=== PATIENT | male | born 1945 | race Caucasian/White ===

== ENCOUNTER 2017-06-18 17:41 | Emergency (ER) | payer BC ==
[2017-06-18] MEDS ORDERED: Sodium Chloride 0.9% 1000 ML 2,000 ML ONE (17:58)
[2017-06-18] MEDS: Sodium Chloride 0.9% 1000 ML 1,000 ML IV SCH ×2 (18:03→18:04)
[2017-06-18 18:14] LABS: Mean Cell Volume 94.5 fl (78-100); Mean Corpuscular Hemoglobin 31.3 pg (26-32); Mean Platelet Volume 11.9 fl (6-9.5); Platelet Count 129 K/mm3 (150-450); Red Blood Count 5.24 M/mm3 (4.1-5.6); Red Cell Distribution Width 13.4 % (11.5-14.0); White Blood Count 7.5 K/mm3 (4.0-10.5)
--- NOTE | 2017-06-18 18:14 | ERPHSYRPT ---
- History of Present Illness Source: patient Exam Limitations: no limitations Patient Subjective Stated Complaint: patient told ems that he fell outside earlier this am. patient denies any injury or pain. after falling patient developed weakness in his legs. has also had fever and cough for two days. ems states family had told them patient did not want to come to the hospital Triage Nursing Assessment: to room per ems cot. skin hot to touch, flushed. resp nonlabored, dry occasional cough. denies any pain. denies any injury Timing/Duration: today (10 AM) Severity: moderate Modifying Factors: Improves With: other (fell at home this morning felt to be confused by family). Worsens With: eating, immobilization, medication, movement , rest, acetaminophen, ibuprofen, nothing Associated Symptoms: cough, weakness, other (cough and fever for 2 days weakness in his legs), No nausea, No vomiting, No abdominal pain, No shortness of breath, No heartburn, No diaphoresis, No chills Hx Tetanus, Diphtheria Vaccination/Date Given: No Hx Influenza Vaccination/Date Given: No Hx Pneumococcal Vaccination/Date Given: No Immunizations Up to Date: No <TANNER GONZALEZ - Last Filed: 06/18/17 19:04> <QUINCY GRANADOS - Last Filed: 06/18/17 19:20> - History of Present Illness Time Seen by Provider: 06/18/17 17:54 Physician History: This is a 71-year-old white male with history of heart disease, diabetes, hypokalemia, high blood pressure, myocardial infarction. Patient is brought by medics patient apparently had a fallen at home and was felt to be confused by his family. On arrival by the medics patient was noted to have a temperature of 103 in his ear he was noted have a heart rate of 101. Patient is brought into the emergency room he does not appear to be in acute distress he does have a temperature of 102.7 he has good peripheral perfusion. He is alert oriented to himself blood pressure 123/78. Sat is 94%. 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 (TANNER GONZALEZ) Allergies/Adverse Reactions: No Known Drug Allergies Allergy (Unverified 06/18/17 17:54) Home Medications: Aspirin [Peabody Aspirin] 162 mg PO DAILY 06/18/17 [History] Carbidopa/Levodopa [Carbidopa-Levo 25-100 Tab] 1 each PO BID 06/18/17 [History] Fenofibrate 54 mg PO DAILY 06/18/17 [History] Fluticasone Propionate [Flovent Diskus] 50 mcg IH DAILY 06/18/17 [History] Folic Acid/Vit B Complex and C [Super B-Complex Folic-Vit C Tb] 400 mcg PO DAILY 06/18/17 [History] Furosemide 40 mg [Lasix 40 MG] 40 mg PO DAILY 06/18/17 [History] Gabapentin [Neurontin] 100 mg PO BID 06/18/17 [History] Insulin Glargine,Hum.rec.anlog [Basaglar Kwikpen U-100] 100 unit SQ DAILY [History] Loratadine 10 mg [Claritin 10 mg] 10 mg PO DAILY 06/18/17 [History] Metoprolol Tartrate 25 mg [Lopressor 25MG Tab] 25 mg PO BID 06/18/17 [ History] Omeprazole 20 MG [Prilosec 20 mg] 20 mg PO DAILY 06/18/17 [History] Potassium Chloride 10 Meq Tab* [Klor Con 10 MEQ] 10 meq PO DAILY 06/18/17 [ History] Quinapril HCl 10 mg [Accupril 10MG Tablet] 10 mg PO DAILY 06/18/17 [History] Simvastatin 20Mg [Zocor 20Mg] 20 mg PO DAILY 06/18/17 [History] - Review of Systems Constitutional: Fever, Weakness, No Chills, No Fatigue, No Lethargy, No Malaise , No Night Sweats, No Weight Loss Eyes: No Symptoms, No Discharge, No Eye Pain, No Eye Redness, No Itchy, No Photophobia, No Tearing, No Vision Changes, No Double Vision, No Foreign Body Sensation Ears, Nose, & Throat: No Symptoms, No Ear Pain, No Ear Discharge, No Hearing Changes, No Tinnitus, No Nose Pain, No Nose Congestion, No Nose Discharge, No Sinus Drainage, No Epistaxis, No Mouth Pain, No Mouth Swelling, No Loose Teeth, No Throat Pain, No Throat Swelling, No Hoarse, No Painful Swallowing, No Snoring , No Stridor Respiratory: Cough, No Cyanosis, No Dyspnea, No Dyspnea on Exertion (PATEL), No Stridor, No Wheezing Cardiac: No Chest Pain, No Edema, No Palpitations, No Syncope, No Orthopnea, No PND Abdominal/Gastrointestinal: No Abdominal Pain, No Nausea, No Vomiting, No Diarrhea, No Constipation, No Hematemesis, No Hematochezia, No Melena, No Dysphagia, No Appetite Changes Genitourinary Symptoms: No Dysuria Musculoskeletal: Other (weakness in his legs), No Back Pain, No Neck Pain Skin: No Rash Neurological: No Dizziness, No Focal Weakness, No Sensory Changes Psychological: No Symptoms Endocrine: No Symptoms All Other Systems: Reviewed and Negative <TANNER GONZALEZ - Last Filed: 06/18/17 19:04> - Past Medical History Pertinent Past Medical History: Yes Cardiac History: Coronary Artery Disease, Hypertension Endocrine Medical History: Diabetes Type II GI Medical History: Gallbladder Disease Other Medical History: heart aneurysm, aorta repair, 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 - Past Surgical History Past Surgical History: Yes Cardiac: CABG Gastrointestinal: Cholecystectomy Other Surgical History: aorta repair, aneurysm repair - Social History Smoking Status: Former smoker Exposure to second hand smoke: No Drug Use: none Patient Lives Alone: No <TANNER GONZALEZ - Last Filed: 06/18/17 19:04> - Physical Exam General Appearance: no apparent distress, other (obese obese white male oriented x 3) Eye Exam: PERRL/EOMI, eyes nml inspection, other (Fundi are unremarkable) Ears, Nose, Throat Exam: normal ENT inspection, TMs normal, pharynx normal, moist mucous membranes Neck Exam: normal inspection, non-tender, supple, full range of motion Respiratory Exam: normal breath sounds, lungs clear, No respiratory distress Cardiovascular Exam: regular rate/rhythm, normal heart sounds, normal peripheral pulses, tachycardia Gastrointestinal/Abdomen Exam: soft, normal bowel sounds, No tenderness, No mass Back Exam: normal inspection, normal range of motion, No CVA tenderness, No vertebral tenderness Extremity Exam: normal inspection, normal range of motion, pelvis stable Neurologic Exam: alert, oriented x 3, cooperative, industrial chemist II-XII nml as tested, normal mood/affect, nml cerebellar function, nml station & gait, sensation nml, No motor deficits Skin Exam: normal color, warm, dry, No rash Lymphatic Exam: No adenopathy SpO2 Interpretation: normal (94%) SpO2: 94 Oxygen Delivery: Room Air <TANNER GONZALEZ - Last Filed: 06/18/17 19:04> - Nursing Vital Signs Nursing Vital Signs: Initial Vital Signs Temperature 102.7 F 06/18/17 17:43 Pulse Rate 107 H 06/18/17 17:43 Respiratory Rate 20 06/18/17 17:43 Blood Pressure 128/78 06/18/17 17:43 O2 Sat by Pulse Oximetry 94 L 06/18/17 17:43 Pain Scale Pain Intensity 0 - Course Nursing assessment & vital signs reviewed: Yes EKG Interpreted by Me: RATE (108 bpm), Left Gibson Deviation, Other (EKG: Sinus tachycardia 10 8 bpm, left axis deviation and complete left bundle branch block) - Radiology Exams Chest X-ray Interpretation: Interpreted by me (no acute disease process) <TANNER GONZALEZ - Last Filed: 06/18/17 19:04> Ordered Tests: Active Orders 24 hr Category Date Time Status Principal Gifts Officer STAT Care 06/18/17 17:52 Active Clean Catch Urine Specimen STAT Care 06/18/17 17:51 Active EKG-ER Only STAT Care 06/18/17 17:52 Active IV Insertion STAT Care 06/18/17 17:51 Active IV Insertion-2nd Peripheral STAT Care 06/18/17 18:02 Active Pulse Oximetry (ED) STAT Care 06/18/17 17:52 Active CHEST 1 VIEW (PORTABLE) Stat Exams 06/18/17 17:51 Taken HEAD WITHOUT CONTRAST [CT] Stat Exams 06/18/17 18:20 Taken BLOOD CULTURE Stat Lab 06/18/17 18:40 Received CBC W DIFF Stat Lab 06/18/17 18:00 Completed CMP Stat Lab 06/18/17 18:00 Completed CULTURE, THROAT Stat Lab 06/18/17 18:10 Received CULTURE,SPUTUM Stat Lab 06/18/17 18:21 Uncollected CULTURE,URINE Stat Lab 06/18/17 18:30 Received Lactic Acid Stat Lab 06/18/17 17:58 Results Manual Differential NC Stat Lab 06/18/17 18:00 Completed NT PRO BNP Stat Lab 06/18/17 18:00 Completed PROTIME WITH INR Stat Lab 06/18/17 18:00 Completed PTT Stat Lab 06/18/17 18:00 Completed STREP SCREEN-BETA A Stat Lab 06/18/17 18:10 Completed TROPONIN Q3H Lab 06/18/17 18:00 Completed TROPONIN Q3H Lab 06/18/17 21:00 Ordered TROPONIN Q3H Lab 06/19/17 00:00 Ordered TROPONIN Q3H Lab 06/19/17 03:00 Ordered TROPONIN Q3H Lab 06/19/17 06:00 Ordered UA Stat Lab 06/18/17 18:30 Received Medication Summary Generic Name Dose Route Start Last Admin Trade Name Freq PRN Reason Stop Dose Admin Sodium Chloride 1,000 mls @ 999 mls/hr 06/18/17 18:00 06/18/17 18:04 Sodium Chloride 0.9% 1000 Ml IV 06/18/17 21:00 999 mls/hr .Q1H1M KATHIA Administration Discontinued Medications Generic Name Dose Route Start Last Admin Trade Name Freq PRN Reason Stop Dose Admin Acetaminophen 1,000 mg 06/18/17 18:17 06/18/17 18:19 Tylenol Extra Strength 500 Mg PO 06/18/17 18:18 1,000 mg STAT ONE Administration Acetaminophen Confirm 06/18/17 18:18 Tylenol Extra Strength 500 Mg Administered 06/18/17 18:19 Dose 1,000 mg .ROUTE .STK-MED ONE Ceftriaxone Sodium/Dextrose 1 g in 50 mls @ 100 mls/hr 06/18/17 18:28 18:42 Rocephin 1 Gm-D5w 50 Ml Bag IV 06/18/17 18:57 100 mls/hr STAT STA Administration Ceftriaxone Sodium/Dextrose Confirm 06/18/17 18:40 Rocephin 1 Gm-D5w 50 Ml Bag Administered 06/18/17 18:41 Dose 1 g in 50 mls @ ud IV .STK-MED ONE Lab/Rad Data: Laboratory Result Diagrams 06/18/17 18:00 06/18/17 18:00 Laboratory Results 06/18/17 06/18/17 06/18/17 Range/Units 18:10 18:10 18:00 WBC (4.0-10.5) K/mm3 RBC (4.1-5.6) M/mm3 Hgb (12.5-18.0) gm/dl Hct (42-50) % MCV (78-100) fl MCH (26-32) pg MCHC (32-36) g/dl RDW (11.5-14.0) % Plt Count (150-450) K/mm3 MPV (6-9.5) fl INR (0.8-3.0) APTT (24.1-36.1) SECONDS Sodium (136-145) mEq/L Potassium (3.5-5.1) mEq/L Chloride (98-107) mEq/L Carbon Dioxide (21-32) mEq/L Anion Gap (5-15) MEQ/L BUN (9-20) mg/dL Creatinine (0.55-1.30) mg/dl Estimated GFR ML/MIN Glucose (70-110) MG/DL Lactic Acid (0.4-2.0) Calcium (8.5-10.1) mg/dL Total Bilirubin (0.2-1.0) mg/dL AST (15-37) U/L ALT (12-78) U/L Alkaline Phosphatase (46-116) U/L Troponin I 0.204 H* (0.000-0.056) ng/ml NT-Pro-B Natriuret Pep (0-125) pg/ml Serum Total Protein (6.4-8.2) gm/dL Albumin (3.4-5.0) g/dL Influenza Type A Ag POSITIVE (NEGATIVE) Influenza Type B Ag NEGATIVE (NEGATIVE) RSV (PCR) NEGATIVE (Negative) Streptococcus Screen NEGATIVE (Negative) 06/18/17 06/18/17 06/18/17 Range/Units 18:00 18:00 18:00 WBC 7.5 (4.0-10.5) K/mm3 RBC 5.24 (4.1-5.6) M/mm3 Hgb 16.4 (12.5-18.0) gm/dl Hct 49.5 (42-50) % MCV 94.5 (78-100) fl MCH 31.3 (26-32) pg MCHC 33.1 (32-36) g/dl RDW 13.4 (11.5-14.0) % Plt Count 129 L (150-450) K/mm3 MPV 11.9 H (6-9.5) fl INR 1.12 (0.8-3.0) APTT 33.5 (24.1-36.1) SECONDS Sodium 135 L (136-145) mEq/L Potassium 4.3 (3.5-5.1) mEq/L Chloride 97 L (98-107) mEq/L Carbon Dioxide 27.8 (21-32) mEq/L Anion Gap 14.4 (5-15) MEQ/L BUN 21 H (9-20) mg/dL Creatinine 2.93 H (0.55-1.30) mg/dl Estimated GFR 23 ML/MIN Glucose 117 H (70-110) MG/DL Lactic Acid (0.4-2.0) Calcium 9.2 (8.5-10.1) mg/dL Total Bilirubin 0.90 (0.2-1.0) mg/dL AST 103 H (15-37) U/L ALT 62 (12-78) U/L Alkaline Phosphatase 63 (46-116) U/L Troponin I (0.000-0.056) ng/ml NT-Pro-B Natriuret Pep 2032 H (0-125) pg/ml Serum Total Protein 7.9 (6.4-8.2) gm/dL Albumin 4.1 (3.4-5.0) g/dL Influenza Type A Ag (NEGATIVE) Influenza Type B Ag (NEGATIVE) RSV (PCR) (Negative) Streptococcus Screen (Negative) 06/18/17 Range/Units 17:58 WBC (4.0-10.5) K/mm3 RBC (4.1-5.6) M/mm3 Hgb (12.5-18.0) gm/dl Hct (42-50) % MCV (78-100) fl MCH (26-32) pg MCHC (32-36) g/dl RDW (11.5-14.0) % Plt Count (150-450) K/mm3 MPV (6-9.5) fl INR (0.8-3.0) APTT (24.1-36.1) SECONDS Sodium (136-145) mEq/L Potassium (3.5-5.1) mEq/L Chloride (98-107) mEq/L Carbon Dioxide (21-32) mEq/L Anion Gap (5-15) MEQ/L BUN (9-20) mg/dL Creatinine (0.55-1.30) mg/dl Estimated GFR ML/MIN Glucose (70-110) MG/DL Lactic Acid 2.0 (0.4-2.0) Calcium (8.5-10.1) mg/dL Total Bilirubin (0.2-1.0) mg/dL AST (15-37) U/L ALT (12-78) U/L Alkaline Phosphatase (46-116) U/L Troponin I (0.000-0.056) ng/ml NT-Pro-B Natriuret Pep (0-125) pg/ml Serum Total Protein (6.4-8.2) gm/dL Albumin (3.4-5.0) g/dL Influenza Type A Ag (NEGATIVE) Influenza Type B Ag (NEGATIVE) RSV (PCR) (Negative) Streptococcus Screen (Negative) - Progress Progress: improved <TANNER GONZALEZ - Last Filed: 06/18/17 19:04> - Progress Progress: improved Will see patient in: hospital (full admit), other ([facility]) Counseled pt/family regarding: lab results, diagnosis, need for follow-up, rad results <QUINCY GRANADOS - Last Filed: 06/18/17 19:20> - Progress Progress Note: 06/18/17 18:16 71-year-old white male with history of atherosclerotic coronary artery disease , that she can take him patient noted to have a of temperature of 103, He was noted to fall at home this morning felt weak and confused by his family. Sepsis screen has been ordered. Patient's lactate is 2.0. IV normal saline has been ordered Patient's pulse ox is 94% patient with pulses equal and symmetrical 2 over 4 upper and lower. He has good capillary refill to his extremities. Patient's blood pressure is 128/78 patient's temperature 102 rectally patient will be given TYLENOL 06/18/17 18:18 06/18/17 18:19 06/18/17 19:02 patient has recieved rocephin 1 gram iv , patient's troponin is elevated head ct is pending patient has lbbb case discussed with Dr Granados, he will assume care of this patient secondary to shift change. (TANNER GONZALEZ) <TANNER GONZALEZ - Last Filed: 06/18/17 19:04> - Departure Time of Disposition: 19:20 Departure Disposition: [facility] under Dr Jonn Granados / Dr Charly haile (cardiology)) Critical Care Time: Yes Critical Care Time(excluding separately billable procedures): 30-74 minutes <QUINYC GRANADOS - Last Filed: 06/18/17 19:20> - Departure Clinical Impression: Non-ST elevation VT (NSTEMI), Influenza A Condition: Stable Referrals: GUI SIMON [Primary Care Provider] -
[2017-06-18] MEDS ORDERED: TYLENOL EXTRA STRENGTH 500 MG PO ONE (18:17)
[2017-06-18] MEDS ORDERED: TYLENOL EXTRA STRENGTH 500 MG ONE (18:18)
[2017-06-18 18:28] LABS: INR 1.12 (0.8-3.0); PROTIME 12.5 SECONDS (8.83-12.87)
[2017-06-18] MEDS ORDERED: ROCEPHIN 1 Gm-D5w 50 ml Bag** 1 G/50 ML IVPB IV STA (18:28)
[2017-06-18 18:29] LABS: PTT 33.5 SECONDS (24.1-36.1)
[2017-06-18] MEDS ORDERED: ROCEPHIN 1 Gm-D5w 50 ml Bag** 1 G/50 ML IVPB IV ONE (18:40)
[2017-06-18 18:44] LABS: ALBUMIN 4.1 g/dL (3.4-5.0); ANION GAP 14.4 MEQ/L (5-15); BILIRUBIN,TOTAL 0.9 mg/dL (0.2-1.0); Carbon Dioxide 27.8 mEq/L (21-32); Potassium 4.3 mEq/L (3.5-5.1); Total Protein 7.9 gm/dL (6.4-8.2)
[2017-06-18 19:22] VITALS: O2SAT 95
[2017-06-18 19:24] LABS: Collection Type CLEAN CATCH
[2017-06-18 19:27] LABS: Bilirubin NEGATIVE (NEGATIVE); Blood 250 Ery/ul (0-5); COMPLETE URINE MICROSCOPIC? YES; Glucose NEGATIVE (NEGATIVE); Leukocyte Esterase NEGATIVE (NEGATIVE)
[2017-06-18 19:30] LABS: Bacteria RARE /HPF (NEGATIVE); WBC 0-2 /HPF (0-5)
[2017-06-18 19:59] VITALS: BP 90/56; PULSE 98
--- NOTE | 2017-06-18 21:00 | XRAY ---
Indication: Found semi-unresponsive. Comparison: October 18, 2009. Portable chest underinflated today without focal infiltrate, consolidation, large effusion, or pneumothorax. Heart is not enlarged for AP portable technique and again demonstrates previous CABG surgery. Bony thorax intact. Impression: Nonacute underinflated chest.
--- NOTE | 2017-06-18 21:05 | XRAY ---
Indication: Found semi-unresponsive. Fever, fatigue, weakness, and confusion. Multiple contiguous axial images obtained through the head without contrast. Comparison: None Age-appropriate global atrophy and mild periventricular degenerative micro-ischemia bilaterally. No acute intracranial hemorrhage, abnormal extra-axial fluid collection, or mass effect. Fourth ventricle is midline without hydrocephalus. Bony calvarium intact. Tiny fluid in the inferior left mastoid air cells. Remaining visualized paranasal sinuses and and right mastoid air cells are clear. Impression: Nonacute senile brain. Tiny fluid in the left mastoid air cells presumed inflammatory. Comment: Preliminary interpretation was made by [facility]. No discrepancy. CTDI 67.41
[2017-06-18 21:24] LABS: Platelet Estimate NORMAL (NORMAL); Total Cells Counted 100
== END 2017-06-18 20:17 | disposition short-term general hospital (02) ==
LOC: ED 17:41
DX: I21.4 Non-ST elevation (NSTEMI) myocardial infarction (principal); J11.1 Influenza due to unidentified influenza virus with other respiratory manifestations; W19.XXXA Unspecified fall, initial encounter; R41.0 Disorientation, unspecified; R50.9 Fever, unspecified; E11.9 Type 2 diabetes mellitus without complications; I10 Essential (primary) hypertension; I25.2 Old myocardial infarction; Z79.899 Other long term (current) drug therapy; Z79.4 Long term (current) use of insulin
CPT/HCPCS: 36000; 36415; 70450; 71010; 80053; 81000; 83605; 83880; 84484; 85025; 85610; 85730; 87040; 87070; 87086; 87430; 87631; 93005; 93041; 96360; 96361; 99285; J0696; A9270-GY

== ENCOUNTER 2018-06-23 19:38 | Emergency (ER) | payer BC ==
[2018-06-23] MEDS ORDERED: solu-MEDROL 125 MG IV ONE (20:14)
[2018-06-23] MEDS ORDERED: Sodium Chloride 0.9% 1000 ML 1,000 ML IV STA (20:14)
--- NOTE | 2018-06-23 20:14 | ERPHSYRPT ---
- History of Present Illness Time Seen by Provider: 06/23/18 19:55 Source: patient, family Exam Limitations: no limitations Patient Subjective Stated Complaint: pt reports cough beginning before opal , states he began wheezing recently and feels short of air with exertion. pt reports thick white sputum. states he felt feverish at home as well. pt also is afraid he might be dehydrated. Triage Nursing Assessment: pt is aox3, pupils perrl, pt afebrile, resps easy and non labored, expiratory wheezes heard anterior and posterior bilat, intermittent productive cough heard on exam, radial pulses strong and equal, pt skin pink warm dry. Physician History: 72 y/o white male with cardiac hx and diabetes presents with approx 6 days of coughing and feeling worse. denies cp, denies abd pain, denies n/v/d. pt feeling weak today. Timing/Duration: day(s) (6) Cough Quality/Degree: mild, dry cough Possible Cause: occasional episodes Modifying Factors: Improves With: coughing Associated Symptoms: cough, sore throat, No chest pain/soreness, No nasal congestion, No nasal drainage, No shortness of breath, No sinus infection Allergies/Adverse Reactions: cephalexin [From Keflex] Allergy (Verified 06/23/18 20:04) tramadol [From Ultram] Allergy (Verified 06/23/18 20:04) Home Medications: Aspirin [Levy Aspirin] 162 mg PO DAILY 06/18/17 [History] Carbidopa/Levodopa [Carbidopa-Levo 25-100 Tab] 1 each PO BID 06/18/17 [History] Fenofibrate 54 mg PO DAILY 06/18/17 [History] Fluticasone Propionate [Flovent Diskus] 50 mcg IH DAILY 06/18/17 [History] Folic Acid/Vit B Complex and C [Super B-Complex Folic-Vit C Tb] 400 mcg PO DAILY 06/18/17 [History] Furosemide 40 mg [Lasix 40 MG] 40 mg PO DAILY 06/18/17 [History] Gabapentin [Neurontin] 100 mg PO BID 06/18/17 [History] Insulin Glargine,Hum.rec.anlog [Basaglar Kwikpen U-100] 100 unit SQ DAILY [History] Loratadine 10 mg [Claritin 10 mg] 10 mg PO DAILY 06/18/17 [History] Metoprolol Tartrate 25 mg [Lopressor 25MG Tab] 25 mg PO BID 06/18/17 [ History] Omeprazole 20 MG [Prilosec 20 mg] 20 mg PO DAILY 06/18/17 [History] Potassium Chloride 10 Meq Tab* [Klor Con 10 MEQ] 10 meq PO DAILY 06/18/17 [ History] Quinapril HCl 10 mg [Accupril 10MG Tablet] 10 mg PO DAILY 06/18/17 [History] Simvastatin 20Mg [Zocor 20Mg] 20 mg PO DAILY 06/18/17 [History] Hx Tetanus, Diphtheria Vaccination/Date Given: No Hx Influenza Vaccination/Date Given: Yes Hx Pneumococcal Vaccination/Date Given: No Immunizations Up to Date: Yes - Review of Systems Constitutional: Weakness Eyes: No Symptoms Ears, Nose, & Throat: No Symptoms Respiratory: Cough, Dyspnea on Exertion (PATEL) (mild), No Stridor, No Wheezing Abdominal/Gastrointestinal: No Symptoms, No Abdominal Pain, No Nausea, No Vomiting, No Diarrhea Genitourinary Symptoms: No Symptoms, No Dysuria, No Frequency, No Hematuria Musculoskeletal: No Symptoms Skin: No Symptoms Neurological: No Symptoms Psychological: No Symptoms Endocrine: No Symptoms Hematologic/Lymphatic: No Symptoms Immunological/Allergic: No Symptoms All Other Systems: Reviewed and Negative - Past Medical History Pertinent Past Medical History: Yes Neurological History: No Pertinent History ENT History: No Pertinent History Cardiac History: Coronary Artery Disease, Hypertension Respiratory History: No Pertinent History Endocrine Medical History: Diabetes Type II Musculoskeletal History: No Pertinent History GI Medical History: Gallbladder Disease History: No Pertinent History Psycho-Social History: No Pertinent History Male Reproductive Disorders: No Pertinent History Other Medical History: heart aneurysm, aorta repair, 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 - Past Surgical History Past Surgical History: Yes Neuro Surgical History: No Pertinent History Cardiac: CABG Respiratory: No Pertinent History Gastrointestinal: Cholecystectomy Genitourinary: No Pertinent History Musculoskeletal: No Pertinent History Male Surgical History: No Pertinent History Other Surgical History: aorta repair, aneurysm repair - Social History Smoking Status: Former smoker Exposure to second hand smoke: No Drug Use: none Patient Lives Alone: No - Nursing Vital Signs Nursing Vital Signs: Initial Vital Signs Temperature 98.5 F 06/23/18 19:45 Pulse Rate 105 H 06/23/18 19:45 Respiratory Rate 22 06/23/18 19:45 Blood Pressure 125/83 06/23/18 19:45 O2 Sat by Pulse Oximetry 93 L 06/23/18 19:45 Pain Scale Pain Intensity 0 - Physical Exam General Appearance: mild distress, alert, anxiety Eye Exam: PERRL/EOMI Ears, Nose, Throat Exam: normal ENT inspection, TMs normal, moist mucous membranes Neck Exam: normal inspection, non-tender, supple, full range of motion Respiratory Exam: airway intact, wheezing, No chest tenderness, No respiratory distress, No accessory muscle use, No rhonchi, No stridor Cardiovascular Exam: tachycardia Gastrointestinal/Abdomen Exam: soft, normal bowel sounds, No tenderness, No guarding, No rebound Rectal Exam: not done Back Exam: normal inspection, normal range of motion, No CVA tenderness, No vertebral tenderness Extremity Exam: normal inspection, normal range of motion, pelvis stable Neurologic Exam: alert, oriented x 3, cooperative, private branch exchange operator II-XII nml as tested Skin Exam: normal color, warm, dry Lymphatic Exam: No adenopathy SpO2 Interpretation: normal SpO2: 93 Oxygen Delivery: Room Air - Course Nursing assessment & vital signs reviewed: Yes Ordered Tests: Active Orders 24 hr Category Date Time Status Chief Communications Officer STAT Care 06/23/18 20:15 Active IV Insertion STAT Care 06/23/18 20:14 Active CHEST 1 VIEW (PORTABLE) Stat Exams 06/23/18 20:14 Taken CBC W DIFF Stat Lab 06/23/18 20:46 Completed CMP Stat Lab 06/23/18 20:46 Completed Lactic Acid Stat Lab 06/23/18 20:30 Completed NT PRO BNP Stat Lab 06/23/18 20:46 Completed Peak Expiratory Flow Rate ONCE RT 06/23/18 20:20 Active Respiratory Therapy Assessment DAILY RT 06/23/18 20:20 Active Medication Summary Discontinued Medications Generic Name Dose Route Start Last Admin Trade Name Freq PRN Reason Stop Dose Admin Hydrocodone Bitart/Acetaminophen 15 ml 06/23/18 20:17 06/23/18 20:33 Hydrocodone-Acetamin 2.5-108/5 Ml Solution PO 06/23/18 20:18 15 ml STAT STA Administration Hydrocodone Bitart/Acetaminophen Confirm 06/23/18 20:20 Hydrocodone-Acetamin 2.5-108/5 Ml Solution Administered 06/23/18 20:21 Dose 5 ml .ROUTE .STK-MED ONE Hydrocodone Bitart/Acetaminophen Confirm 06/23/18 20:20 Hydrocodone-Acetamin 2.5-108/5 Ml Solution Administered 06/23/18 20:21 Dose 10 ml .ROUTE .STK-MED ONE Albuterol/Ipratropium 3 ml 06/23/18 20:16 06/23/18 20:18 Duoneb 0.5-3 Mg/3 Ml Neb IH 06/23/18 20:17 3 ml STAT ONE Administration Albuterol/Ipratropium Confirm 06/23/18 20:16 Duoneb 0.5-3 Mg/3 Ml Neb Administered 06/23/18 20:17 Dose 3 ml IH .STK-MED ONE Sodium Chloride 1,000 mls @ 999 mls/hr 06/23/18 20:14 06/23/18 20:48 Sodium Chloride 0.9% 1000 Ml IV 06/23/18 21:14 999 mls/hr .Q1H1M STA Administration Sodium Chloride Confirm 06/23/18 20:43 Sodium Chloride 0.9% 1000 Ml Administered 06/23/18 20:44 Dose 1,000 mls @ ud .ROUTE .STK-MED ONE Methylprednisolone Sodium Succinate 125 mg 06/23/18 20:14 06/23/18 20:52 Solu-Medrol 125 Mg IV 06/23/18 20:15 125 mg STAT ONE Administration Methylprednisolone Sodium Succinate Confirm 06/23/18 20:42 Solu-Medrol 125 Mg Administered 06/23/18 20:43 Dose 125 mg .ROUTE .STK-MED ONE Lab/Rad Data: Laboratory Result Diagrams 06/23/18 20:46 06/23/18 20:46 Laboratory Results 06/23/18 06/23/18 06/23/18 Range/Units 20:47 20:46 20:46 WBC 9.8 (4.0-10.5) K/mm3 RBC 5.32 (4.1-5.6) M/mm3 Hgb 16.7 (12.5-18.0) gm/dl Hct 49.4 (42-50) % MCV 92.9 (78-100) fl MCH 31.4 (26-32) pg MCHC 33.8 (32-36) g/dl RDW 13.3 (11.5-14.0) % Plt Count 148 L (150-450) K/mm3 MPV 12.1 H (6-9.5) fl Gran % 64.9 (36.0-66.0) % Eos # (Auto) 0.03 (0-0.5) Absolute Lymphs (auto) 2.18 (1.0-4.6) Absolute Monos (auto) 1.21 (0.0-1.3) Lymphocytes % 22.3 L (24.0-44.0) % Monocytes % 12.4 H (0.0-12.0) % Eosinophils % 0.3 (0.00-5.0) % Basophils % 0.1 (0.0-0.4) % Absolute Granulocytes 6.36 (1.4-6.9) Basophils # 0.01 (0-0.4) Sodium 136 L (137-145) mmol/L Potassium 4.2 (3.5-5.1) mmol/L Chloride 99 (98-107) mmol/L Carbon Dioxide 26 (22-30) mmol/L Anion Gap 15.4 H (5-15) MEQ/L BUN 22 H (9-20) mg/dL Creatinine 2.09 H (0.66-1.25) mg/dL Estimated GFR 33.4 ML/MIN Glucose 189 H (74-106) mg/dL Lactic Acid (0.4-2.0) Calcium 9.2 (8.4-10.2) mg/dL Total Bilirubin 1.60 H (0.2-1.3) mg/dL AST 45 (17-59) U/L ALT 30 (0-50) U/L Alkaline Phosphatase 53 (38-126) U/L NT-Pro-B Natriuret Pep 848 (0-900) pg/mL Serum Total Protein 8.0 (6.3-8.2) g/dL Albumin 4.4 (3.5-5.0) g/dL Influenza Type A Ag NEGATIVE (NEGATIVE) Influenza Type B Ag NEGATIVE (NEGATIVE) RSV (PCR) NEGATIVE (Negative) Group A Strep Antibody NEGATIVE (NEGATIVE) 06/23/18 Range/Units 20:30 WBC (4.0-10.5) K/mm3 RBC (4.1-5.6) M/mm3 Hgb (12.5-18.0) gm/dl Hct (42-50) % MCV (78-100) fl MCH (26-32) pg MCHC (32-36) g/dl RDW (11.5-14.0) % Plt Count (150-450) K/mm3 MPV (6-9.5) fl Gran % (36.0-66.0) % Eos # (Auto) (0-0.5) Absolute Lymphs (auto) (1.0-4.6) Absolute Monos (auto) (0.0-1.3) Lymphocytes % (24.0-44.0) % Monocytes % (0.0-12.0) % Eosinophils % (0.00-5.0) % Basophils % (0.0-0.4) % Absolute Granulocytes (1.4-6.9) Basophils # (0-0.4) Sodium (137-145) mmol/L Potassium (3.5-5.1) mmol/L Chloride (98-107) mmol/L Carbon Dioxide (22-30) mmol/L Anion Gap (5-15) MEQ/L BUN (9-20) mg/dL Creatinine (0.66-1.25) mg/dL Estimated GFR ML/MIN Glucose (74-106) mg/dL Lactic Acid 1.8 (0.4-2.0) Calcium (8.4-10.2) mg/dL Total Bilirubin (0.2-1.3) mg/dL AST (17-59) U/L ALT (0-50) U/L Alkaline Phosphatase (38-126) U/L NT-Pro-B Natriuret Pep (0-900) pg/mL Serum Total Protein (6.3-8.2) g/dL Albumin (3.5-5.0) g/dL Influenza Type A Ag (NEGATIVE) Influenza Type B Ag (NEGATIVE) RSV (PCR) (Negative) Group A Strep Antibody (NEGATIVE) - Progress Progress: improved, re-examined Air Movement: good Progress Note: 06/23/18 21:30 pt states he is feeling better. Blood Culture(s) Obtained: No Antibiotics given: Yes Counseled pt/family regarding: lab results, diagnosis, need for follow-up, rad results - Departure Time of Disposition: 21:30 Departure Disposition: Home Clinical Impression: Bronchitis Condition: Stable Critical Care Time: No Referrals: GUI SIMON [Primary Care Provider] - Additional Instructions: drink plenty of fluids. take medications as prescribed. monitor your blood glucose closely. follow up with primary doctor for further management Prescriptions: Albuterol 8 gm Mdi Hfa [Ventolin Hfa MDI] 8 gm IH Q4H #1 hfa.aer.ad Azithromycin 250 mg [Zithromax 250 MG TABLET] 250 mg PO ZPACK #4 tablet Hydrocodone Bit/Acetaminophen [Hydrocodone-Acetaminophen Soln] 10 ml PO Q6H # 120 ml Prednisone 10 mg [Deltasone 10 mg] 10 mg PO BID #6 tablet
[2018-06-23] MEDS ORDERED: DUONEB 0.5-3 MG/3 ml Neb IH ONE ×2 (20:16)
[2018-06-23] MEDS ORDERED: HYDROCODONE-ACETAMIN 2.5-108/5 ML SOLUTION PO STA (20:17)
[2018-06-23] MEDS ORDERED: HYDROCODONE-ACETAMIN 2.5-108/5 ML SOLUTION ONE ×2 (20:20)
[2018-06-23] MEDS ORDERED: solu-MEDROL 125 MG ONE (20:42)
[2018-06-23] MEDS ORDERED: Sodium Chloride 0.9% 1000 ML 1,000 ML ONE (20:43)
[2018-06-23 20:49] LABS: BASOPHIL % 0.1 % (0.0-0.4); Basophil (Absolute #) 0.01 (0-0.4); Eosinophil % 0.3 % (0.00-5.0); Eosinophil (Absolute #) 0.03 (0-0.5); Granulocyte Absolute (ANC) 6.36 (1.4-6.9); Granulocytes % 64.9 % (36.0-66.0); Hematocrit 49.4 % (42-50); Hemoglobin 16.7 gm/dl (12.5-18.0); Lymphocyte (Absolute #) 2.18 (1.0-4.6); Lymphocytes % 22.3 % (24.0-44.0); Mean Cell Volume 92.9 fl (78-100); Mean Corpuscular Hemoglobin 31.4 pg (26-32); Mean Corpuscular Hgb Concent. 33.8 g/dl (32-36); Mean Platelet Volume 12.1 fl (6-9.5); Monocyte (Absolute #) 1.21 (0.0-1.3); Monocytes % 12.4 % (0.0-12.0); Platelet Count 148 K/mm3 (150-450); Red Blood Count 5.32 M/mm3 (4.1-5.6); Red Cell Distribution Width 13.3 % (11.5-14.0); White Blood Count 9.8 K/mm3 (4.0-10.5)
[2018-06-23 21:08] LABS: ALBUMIN 4.4 g/dL (3.5-5.0); ANION GAP 15.4 MEQ/L (5-15); BILIRUBIN,TOTAL 1.6 mg/dL (0.2-1.3); Calcium 9.2 mg/dL (8.4-10.2); Creatinine 1 2.09 mg/dL (0.66-1.25); Potassium 4.2 mmol/L (3.5-5.1)
[2018-06-23 21:24] LABS: INFLUENZA A NEGATIVE (NEGATIVE); INFLUENZA B NEGATIVE (NEGATIVE); RESPIRATORY SYNCTIAL VIRUS NEGATIVE (Negative)
[2018-06-23] MEDS ORDERED: Zithromax 250 MG TABLET PO ONE (21:29)
[2018-06-23] MEDS ORDERED: Zithromax 250 MG TABLET ONE (21:46)
--- NOTE | 2018-06-23 22:08 | XRAY ---
Indication: Cough. Flu symptoms. Comparison: June 18, 2017. Portable chest remains clear. Heart is not enlarged for AP portable technique and again demonstrates CABG surgery. Bony thorax intact. No new/acute findings. Impression: Stable nonacute chest.
[2018-06-23 22:31] VITALS: BP 133/78; PULSE 94; O2SAT 95
== END 2018-06-23 22:31 | disposition home or self-care (01) ==
LOC: ED 19:38
DX: J40 Bronchitis, not specified as acute or chronic (principal); Z79.899 Other long term (current) drug therapy; E11.9 Type 2 diabetes mellitus without complications; Z79.4 Long term (current) use of insulin
CPT/HCPCS: 36000; 36415; 71045; 80053; 83605; 83880; 85025; 87631; 87651; 93041; 94150; 94640; 96360; 96374; 99284; J2930; A9270-GY

== ENCOUNTER 2019-05-27 11:23 | Day surgery (SDC) | payer BC ==
--- NOTE | 2019-05-24 09:38 | HP ---
PROCEDURE DATE: 05/27/19 HISTORY OF PRESENT ILLNESS: The patient is a 73 y/o who had a procedure per Dr. Lang on his left ear in the past with some problems. Ran dermatology. Question of whether he had an infected ruptured cyst site. Asked for consideration for surgical evaluation. He was given the option as it improved a little bit to give it more time, if failed to improve, continue to proceed with open surgical intervention, possible packing. He decided to set up elective excision. PAST MEDICAL HISTORY: Diabetes, hypercholesterolemia, restless leg, history of some peripheral neuropathy, coronary artery disease, hypertension, some chronic renal disease. PAST SURGICAL HISTORY: Had cholecystectomy in the past as well as surgical procedure on his ear. Also, a scalp lesion excised in the past. Has had a right knee surgery. Had a coronary artery bypass graft in the past. CURRENT MEDICATIONS: Aspirin, baciglar, carbidopa levodopa, Fenofibrate, fluconazole spray, furosemide, gabapentin, metoprolol, omeprazole, potassium chloride, quinapril, simvastatin, sulfamethoxazole, Ventolin HFA, vitamin b complex. ALLERGIES: KETEK, ULTRAM. FAMILY HISTORY: Negative with regards to this problem. REVIEW OF SYSTEMS: 14 systems reviewed, pertinent for as noted above. PHYSICAL EXAMINATION: GENERAL: No acute distress. HEENT: Sclerae nonicteric. Behind his left ear area/postauricular area ruptured cyst site. NECK: No JVD. CHEST: Equal excursion. Nonlabored breathing. CVS: Regular rate and rhythm. ABDOMEN: Soft. EXTREMITIES: No cyanosis. NEURO: Alert, moving extremities grossly symmetrically. IMPRESSION: 1. RUPTURED CYST SITE LEFT POSTAURICULAR AREA. Feel the patient will benefit from opening, possible excision, possible packing pending operative findings. He understands if packed would require packing in a daily basis. General risks of aches, pains, burning or numbness; risk if failure to heal possibly requiring other intervention; general risk of anesthesia, deep vein thrombosis, pulmonary embolism, or pneumonia, but not limited to. He understands and agrees to the planned procedure. Will proceed with outpatient excisional biopsy ruptured cyst site postauricular area, possible packing pending operative finding.
[~2019-05-27 11:23] MED LIST: Lactated Ringers 1,000 ML IV ONE; Sensorcaine 0.25% 10 ML ONE
[2019-05-27] MEDS ORDERED: Lactated Ringers 1,000 ML IV SCH (12:00)
[2019-05-27] MEDS ORDERED: Lactated Ringers 1,000 ML IV ONE (12:06)
[2019-05-27] MEDS ORDERED: Versed 2 MG/2 ML Injection ONE (13:42)
[2019-05-27] MEDS ORDERED: SUBLIMAZE 100 MCG/2 ML ONE (13:42)
[2019-05-27] MEDS ORDERED: CLINDAMYCIN-D5W 900 MG/50 ML IV ONE (13:45)
[2019-05-27] MEDS ORDERED: DIPRIVAN 200 MG/20 ML IV ONE (14:04)
[2019-05-27 15:18] VITALS: BP 115/65; PULSE 75; O2SAT 96
--- NOTE | 2019-05-27 15:27 | OP ---
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 PROCEDURE: Excisional biopsy ruptured cyst abscess cavity with culture, irrigation and packing (approximately 3 cm diameter rupture cyst abscess cavity). SURGEON: Dr. Ancelmo Knapp. LOGISTICS PLANNING ENGINEER: Migel Gabriel, Medical Student III. ANESTHESIA: General. ESTIMATED BLOOD LOSS: Minimal. INDICATIONS: As noted above. Risks and benefits explained in detail and not limited to. He had recurrent rupture cyst site post-auricular area excised previously in the office. Had persistent drainage, aches and pain. It was felt he needed OR evaluation, excision and likely packing given the degree of infection to see it there is any retained cyst particles or other material. Consent had been obtained. Site had been marked in the preoperative holding area. DESCRIPTION OF PROCEDURE AND FINDINGS: The patient is taken to the operating room. General anesthesia introduced. Post-auricular area and ear were prepped and draped in usual sterile fashion. After official time out and no disagreement with planned procedure, spindle shaped going through the nonhealing part of the wound. Dissection carried down to the ruptured cyst cavity this is carefully excised with what appeared to be some cyst particle debris deep in the cavity and passed off out to normal appearing more inflammatory granulation-type tissue. This area measured about 3 cm in size. Pinpoint cautery as there was some oozing at the skin level accomplished. Copious amount of irrigation irrigating clear. There did not appear to be any evidence of any other residual cyst material at this point. Given the degree of infection culture had been taken. Whether this residual abscess or not at this time given the degree of infection and inflammation, it was felt not safe to just simply close this, felt it should be packed as I explained to the patient previously. The corners were brought together with interrupted vertical mattress 4-0 Prolene. Adequate hemostasis noted. The wound is then packed with Iodoform packing down to the base of the wound. Sterile dressing applied. 0.25% Marcaine had been injected along the area. The patient tolerated the procedure well. Findings discussed with the family out in the waiting area including the importance of starting tomorrow to remove the packing and repack the base of the wound with normal saline wet to dry on daily and PRN basis. I will see him back in the office either next week in [facility] or the following week here at [facility].
== END 2019-05-27 15:37 | disposition home or self-care (01) ==
LOC: SDC 11:23
PROVIDERS: ATTEND Surgery
DX: C44.229 Squamous cell carcinoma of skin of left ear and external auricular canal (principal); Q18.1 Preauricular sinus and cyst; E11.9 Type 2 diabetes mellitus without complications; E78.00 Pure hypercholesterolemia, unspecified; I10 Essential (primary) hypertension; I25.10 Atherosclerotic heart disease of native coronary artery without angina pectoris
CPT/HCPCS: 82962; 87070; 88305; 99100; J2250; J2704; J3010

== ENCOUNTER 2019-12-16 09:36 | Day surgery (SDC) | payer BC ==
[~2019-12-16 09:36] MED LIST changes: -Sensorcaine 0.25% 10 ML ONE; +XYLOCAINE 1% HCL 20 ML MDV ONE; +Xylocaine 1% Vial 30 ML PF IJ ONE
[2019-12-16] MEDS ORDERED: XYLOCAINE 1% HCL 20 ML MDV ONE (09:38)
[2019-12-16] MEDS ORDERED: Lactated Ringers 1,000 ML IV SCH (10:00)
[2019-12-16] MEDS ORDERED: CEFAZOLIN 2 GM-D5W BAG** 2 GM/50 ML ML IV SCH (10:00)
[2019-12-16] MEDS ORDERED: Lactated Ringers 1,000 ML IV ONE (10:09)
[2019-12-16] MEDS ORDERED: CEFAZOLIN 2 GM-D5W BAG** 2 GM/50 ML ML IV ONE (10:09)
--- NOTE | 2019-12-16 10:15 | HP ---
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 He did better originally but developed increased radiation around the area. Whether if this failed to improve, further workup as he had some bone lesion and adenopathy. At this time he had been referred to Dr. August. He feels that he will benefit first from IV treatments as cannot get clear margins surgically here. PAST MEDICAL HISTORY: CAD, cardiomyopathy, diabetes, renal insufficiency, hypertension, hypercholesterolemia, restless leg syndrome. PAST SURGICAL HISTORY: Excisional biopsy squamous cell carcinoma of the scalp. Right knee repair in the past. Cholecystectomy. CABG in the past. MEDICATIONS: Basaglar, Accupril, Metoprolol, Klor-Con, omeprazole, aspirin, Simvastatin, Claritin, Sinemet, vitamin B complex and vitamin C, fluconazole spray, furosemide, fenofibrate, gabapentin, [place]. ALLERGIES: ULTRAM. FAMILY HISTORY: Diabetes, heart disease, hypertension, lung cancer. SOCIAL HISTORY: Former smoker. No alcohol abuse. REVIEW OF SYSTEMS: Fourteen systems reviewed per admission assessment, multiple medical problems as above. PHYSICAL EXAMINATION: GENERAL: No acute distress. HEENT: Sclerae nonicteric. He has had some adenopathy behind his left ear, open wound with raised area consistent with recurrent squamous cell carcinoma. History of radiotherapy in the past. NECK: No JVD. CHEST: Equal excursion, nonlabored breathing. CVS: Regular rate and rhythm. ABDOMEN: Soft, nondistended. EXTREMITIES: No cyanosis. NEURO: Alert, moving extremities symmetrically. 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 I feel he is a candidate. Risks explained in detail including but not limited to bleeding or infection, risk of thrombosis or pneumothorax, risk of hematoma or seroma formation, risk of port or catheter fracture or failure possibly requiring removal or replacement, risk of arterial injury, remote risk of major venous tear, remote risk of mortality, risk of anesthesia or sedation, risk of aches, pains but not limited to. If he is agreeable will proceed with Port-A-Cath placement as an outpatient.
[2019-12-16] MEDS ORDERED: Ketamine HCl 50 MG/ML ONE (11:45)
[2019-12-16] MEDS ORDERED: SUBLIMAZE 100 MCG/2 ML ONE (12:10)
[2019-12-16] MEDS ORDERED: DIPRIVAN 200 MG/20 ML IV ONE (12:11)
[2019-12-16 13:25] VITALS: O2SAT 98
[2019-12-16 13:36] VITALS: BP 130/72; PULSE 84
--- NOTE | 2019-12-16 14:11 | XRAY ---
Indication: Port placement. Intraoperative fluoroscopy was provided for 3 seconds. Single digital spot image submitted for interpretation demonstrates incompletely visualized left Port-A-Cath with tip projecting over the SVC. Correlate with intraoperative findings/report.
--- NOTE | 2019-12-17 11:03 | OP ---
SURGERY DATE/TIME: 12/16/2019 1215 PREOPERATIVE DIAGNOSIS: Local invasion with skull erosion, recurrent squamous cell carcinoma, question of some adenopathy of the neck, in need of chcf IV access for IV treatment, need for Port-A-Cath. POSTOPERATIVE DIAGNOSIS: Local invasion with skull erosion, recurrent squamous cell carcinoma, question of some adenopathy of the neck, in need of termite control representative IV access for IV treatment, need for Port-A-Cath. PROCEDURE: Port-A-Cath with C-arm fluoroscopy left subclavian vein. SURGEON: Dr. Ancelmo Knapp. ANESTHESIA: MAC. ESTIMATED BLOOD LOSS: Minimal. INDICATIONS: As noted above. Risks and benefits explained in detail and not limited to and consent obtained. DESCRIPTION OF PROCEDURE AND FINDINGS: The patient is taken to the operating room. MAC anesthesia introduced. After official time out and no disagreement with planned procedure in Trendelenburg position, 1% lidocaine local was infiltrated. An 18 gauge cannulation needle inserted on first pass. Good dark nonpulsatile venous return. Guide wire passed without difficulty. Confirmed down the superior vena cava by C-arm fluoroscopy. Followed by anesthetizing tunnel track and inferior port pocket area. Inferior subcu port pocket created with aid of cautery. Port secured to the chest wall with Prolene suture x2. Catheter tunneled down from cannulation stab wound down the port pocket area. The dilator break away sheath easily fed over the guide wire. Catheter fed down break away sheath. The tip was over in the distal superior vena cava on C-arm fluoroscopy. Lung lynch noted to be up bilaterally. The catheter is cut to appropriate length snapped on the port with the hub. The port aspirated dark, nonpulsatile venous return with ease and flushed with heparinized saline with ease. Good hemostasis is noted. A small electrical instrument repairer in subcu port pocket was controlled with 3-0 Vicryl suture ligature. The deeper subcu is closed with 3-0 Vicryl. Superficial subcu closed with 3-0 Vicryl. Skin closed with 4-0 Vicryl. Cannulation stable wound closed with 4-0 Vicryl. Steri-Strips and sterile dressing applied. The patient tolerated the procedure well. There were no immediate complications. There was no family available to discuss the findings with out in the waiting area.
== END 2019-12-16 13:45 | disposition home or self-care (01) ==
LOC: SDC 09:36
PROVIDERS: ATTEND Surgery
DX: C44.229 Squamous cell carcinoma of skin of left ear and external auricular canal (principal); M85.88 Other specified disorders of bone density and structure, other site; E11.9 Type 2 diabetes mellitus without complications; I10 Essential (primary) hypertension; E78.00 Pure hypercholesterolemia, unspecified; N28.9 Disorder of kidney and ureter, unspecified; Z79.899 Other long term (current) drug therapy
CPT/HCPCS: 36571; 77001; 82962; C1788; 99100; J0690; J1642; J2001; J2704; J3010

== ENCOUNTER 2019-12-31 17:38 | Emergency (ER) | payer BC ==
--- NOTE | 2019-12-31 17:43 | ERPHSYRPT ---
- History of Present Illness Time Seen by Provider: 12/31/19 17:43 Source: patient, family Exam Limitations: no limitations Physician History: A 74-year-old gentleman who has left posterior auricular squamous cell carcinoma. Patient is receiving immunologic therapy. Patient has a wide biopsy site that is open and with serosanguineous drainage. Yesterday evening the daughter of the patient states that there was a large amount of blood from the site. They were able to stop the bleeding and today there was a small amount of bleeding starting and they were concerned that another large amount would be draining from the site. They were here for wound check and to repack the wound. Patient's surgeon is Dr. Warren and his primary care physician is Dr. Gibson. She has not seen a sap specialist in the past for this open poorly healing wound. Quality: painful Severity: mild Location: scalp (Posterior auricular region on left) Associated Symptoms: denies symptoms Allergies/Adverse Reactions: telithromycin Allergy (Intermediate, Verified 12/31/19 19:09) Hives Rash tramadol [From Ultram] Allergy (Verified 12/31/19 19:09) Home Medications: Aspirin [[place] Aspirin EC] 162 mg PO DAILY 06/18/17 [History] Fenofibrate 54 mg PO DAILY 06/18/17 [History] Furosemide 40 mg [Lasix 40 MG] 40 mg PO DAILY 06/18/17 [History] Gabapentin [Neurontin] 100 mg PO BID 06/18/17 [History] Metoprolol Tartrate 25 mg [Lopressor 25MG Tab] 25 mg PO BID 06/18/17 [History] Omeprazole 20 MG [Prilosec 20 mg] 20 mg PO DAILY 06/18/17 [History] Potassium Chloride 10 Meq Tab* [Klor Con 10 MEQ] 10 meq PO DAILY 06/18/17 [History] Simvastatin 20Mg [Zocor 20Mg] 20 mg PO DAILY 06/18/17 [History] Carbidopa/Levodopa [Carbidopa-Levo ER 25-100 Tab] 200 mg PO DAILY 05/16/19 [History] Insulin Glargine,Hum.rec.anlog [Basaglar Kwikpen U-100] 100 unit SQ DAILY 05/16/19 [History] Loratadine 10 mg [Claritin 10 mg] 10 mg PO DAILY 05/16/19 [History] Quinapril HCl 10 mg [Accupril 10MG Tablet] 10 mg PO DAILY 05/16/19 [History] Vitamin B Complex [Super B Complex] 1 each PO DAILY 05/16/19 [History] Hx Tetanus, Diphtheria Vaccination/Date Given: No Hx Influenza Vaccination/Date Given: Yes Hx Pneumococcal Vaccination/Date Given: No Travel Risk - International Travel Have you traveled outside of the country in past 3 weeks: No - Coronavirus Screening Are you exhibiting any of the following symptoms?: No Close contact with a COVID-19 positive Pt in past 14-21 Days: No - Review of Systems Constitutional: No Symptoms Eyes: No Symptoms Ears, Nose, & Throat: No Symptoms Respiratory: No Symptoms Cardiac: No Symptoms Abdominal/Gastrointestinal: No Symptoms Genitourinary Symptoms: No Symptoms, Penile Discharge Musculoskeletal: No Symptoms Skin: Other (Poorly healing open cancerous wound left posterior regular region) Neurological: No Symptoms Psychological: No Symptoms Endocrine: No Symptoms Hematologic/Lymphatic: No Symptoms Immunological/Allergic: No Symptoms All Other Systems: Reviewed and Negative - Past Medical History Pertinent Past Medical History: Yes Neurological History: No Pertinent History ENT History: No Pertinent History Cardiac History: Coronary Artery Disease, Hypertension, Myocardial Infarction ([place]) Respiratory History: No Pertinent History Endocrine Medical History: Diabetes Type II Musculoskeletal History: No Pertinent History GI Medical History: Gallbladder Disease History: Renal Disease Psycho-Social History: No Pertinent History Male Reproductive Disorders: No Pertinent History Other Medical History: heart aneurysm, aorta repair, 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 Surgery on Right knee with alee and screws. skin cancer to forehead. and surgery on skin cancer behind left ear. - Social History Smoking Status: Never smoker Exposure to second hand smoke: No Drug Use: none Patient Lives Alone: No - Nursing Vital Signs Nursing Vital Signs: Initial Vital Signs Temperature 97.8 F 12/31/19 19:01 Pulse Rate 111 H 12/31/19 19:01 Respiratory Rate 18 12/31/19 19:01 Blood Pressure 108/64 12/31/19 19:01 O2 Sat by Pulse Oximetry 96 12/31/19 19:01 Pain Scale Pain Intensity 0 - Physical Exam General Appearance: no apparent distress, alert, anxiety Eye Exam: PERRL/EOMI, eyes nml inspection Ears, Nose, Throat Exam: normal ENT inspection, moist mucous membranes Neck Exam: normal inspection, non-tender, supple, full range of motion Respiratory Exam: airway intact, No chest tenderness, No respiratory distress Gastrointestinal/Abdomen Exam: soft, No tenderness Rectal Exam: not done Back Exam: normal inspection, normal range of motion, No CVA tenderness, No vertebral tenderness Extremity Exam: normal inspection, normal range of motion, pelvis stable Neurologic Exam: alert, oriented x 3, cooperative, 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 There is no active bleeding. There is a slow ooze that is serosanguineous. It is tender. There is no obvious infection present.) Lymphatic Exam: No adenopathy SpO2 Interpretation: normal O2 Delivery: Room Air - Course Nursing assessment & vital signs reviewed: Yes Ordered Tests: Active Orders 24 hr Category Date Time Status Wound Care STAT Care 12/31/19 19:47 Ordered CBC W DIFF Stat Lab 12/31/19 18:55 Completed Medication Summary Discontinued Medications Generic Name Dose Route Start Last Admin Trade Name Russellq PRN Reason Stop Dose Admin Hydrocodone Bitart/Acetaminophen 1 tab 12/31/19 18:55 12/31/19 19:07 Admire 5/325 Mg PO 12/31/19 18:56 1 tab STAT ONE Administration Hydrocodone Bitart/Acetaminophen Confirm 12/31/19 19:04 Admire 5/325 Mg Administered 12/31/19 19:05 Dose 1 tab .ROUTE .[facility]-MED ONE Lab/Rad Data: Laboratory Result Diagrams 12/31/19 18:55 Laboratory Results 12/31/19 Range/Units 18:55 WBC 15.7 H (4.0-10.5) K/mm3 RBC 4.78 (4.1-5.6) M/mm3 Hgb 14.6 (12.5-18.0) gm/dl Hct 44.7 (42-50) % MCV 93.5 (78-100) fl MCH 30.5 (26-32) pg MCHC 32.7 (32-36) g/dl RDW 13.3 (11.5-14.0) % Plt Count 220 (150-450) K/mm3 MPV 11.8 H (7.5-11.0) fl Gran % 76.0 H (36.0-66.0) % Eos # (Auto) 0.14 (0-0.5) Absolute Lymphs (auto) 1.90 (1.0-4.6) Absolute Monos (auto) 1.70 H (0.0-1.3) Lymphocytes % 12.1 L (24.0-44.0) % Monocytes % 10.8 (0.0-12.0) % Eosinophils % 0.9 (0.00-5.0) % Basophils % 0.2 (0.0-0.4) % Absolute Granulocytes 11.91 H (1.4-6.9) Basophils # 0.03 (0-0.4) - Progress Progress: improved, pain not gone completely Counseled pt/family regarding: lab results, diagnosis, need for follow-up - Departure Departure Disposition: Home Clinical Impression: Encounter for postoperative wound check Condition: Stable Critical Care Time: No Referrals: MATEUSZ GIBSON MD [Primary Care Provider] - Additional Instructions: Call both your primary care doctor and your surgeon tomorrow morning to arrange a follow-up appointment. Have a discussion with them regarding evaluation and management through a wound care center. Beginning tomorrow afternoon, change the dressing to your normal daily dressing changes.
[2019-12-31] MEDS ORDERED: NORCO 5/325 MG PO ONE (18:55)
[2019-12-31 18:57] LABS: Absolute Neutrophil Ct (ANC) 11.91 (1.4-6.9); BASOPHIL % 0.2 % (0.0-0.4); Basophil (Absolute #) 0.03 (0-0.4); Eosinophil % 0.9 % (0.00-5.0); Eosinophil (Absolute #) 0.14 (0-0.5); Hematocrit 44.7 % (42-50); Hemoglobin 14.6 gm/dl (12.5-18.0); Lymphocytes % 12.1 % (24.0-44.0); Mean Cell Volume 93.5 fl (78-100); Mean Corpuscular Hemoglobin 30.5 pg (26-32); Mean Corpuscular Hgb Concent. 32.7 g/dl (32-36); Mean Platelet Volume 11.8 fl (7.5-11.0); Monocytes % 10.8 % (0.0-12.0); Platelet Count 220 K/mm3 (150-450); Red Blood Count 4.78 M/mm3 (4.1-5.6); Red Cell Distribution Width 13.3 % (11.5-14.0); White Blood Count 15.7 K/mm3 (4.0-10.5)
[2019-12-31] MEDS ORDERED: NORCO 5/325 MG ONE (19:04)
[2019-12-31 19:08] VITALS: BP 108/64; PULSE 111; O2SAT 96
[2019-12-31 22:36] LABS: Slide Review 1 YES
== END 2019-12-31 20:16 | disposition home or self-care (01) ==
LOC: ED 17:38
DX: Z48.01 Encounter for change or removal of surgical wound dressing (principal); H95.42 Postprocedural hemorrhage of ear and mastoid process following other procedure; Y84.8 Other medical procedures as the cause of abnormal reaction of the patient, or of later complication, without mention of misadventure at the time of the procedure; C44.229 Squamous cell carcinoma of skin of left ear and external auricular canal; H92.02 Otalgia, left ear; Z79.899 Other long term (current) drug therapy; I25.810 Atherosclerosis of coronary artery bypass graft(s) without angina pectoris; I10 Essential (primary) hypertension; I25.2 Old myocardial infarction; E11.9 Type 2 diabetes mellitus without complications
CPT/HCPCS: 36415; 85025; 99283; A9270-GY

== ENCOUNTER 2020-02-09 15:57 | Emergency (ER) | payer BC ==
[2020-02-09] MEDS ORDERED: Sodium Chloride 0.9% 1000 ML 1,000 ML IV STA (16:23)
[2020-02-09] MEDS ORDERED: Sodium Chloride 0.9% 1000 ML 1,000 ML ONE (16:26)
--- NOTE | 2020-02-09 16:34 | ERPHSYRPT ---
- History of Present Illness Time Seen by Provider: 02/09/20 16:31 Source: family Exam Limitations: clinical condition Patient Subjective Stated Complaint: Confusion Triage Nursing Assessment: Patient brought back to ED via w/c and transferred to bed with assist of 1. Patient A+O X3. Patient's skin pink, warm and dry. Patient's daughter states patient increased confusion. NIH Stroke scale negative. Patient's daughter states patient's blood sugar has been running low between 51-122. Patient denies pain or discomfort. Physician History: 74-year-old man came to the emergency room brought in by his daughter states damir t he has been confused for last few days. She checked his blood sugar and which was around 115. Patient is able to answer yes and no. Patient is alert oriented to person only. Unable to give too much history. According to daughter patient is not running fever chills nausea vomiting diarrhea or abdominal pain. Patient recently has MRI of the brain as patient had a squamous cell carcinoma of the skin of the scalp. Timing/Duration: today Severity: mild Character of Deficits: none Deficits: no difficulties, decrease ability to stand Baseline/Normal Cognition: alert/disoriented to time Current Cognition: alert/disoriented to time Baseline Gait: walks only w/assistance Associated Symptoms: confusion, weakness, trouble walking, No fatigue, No fever, No chills, No loss of consciousness, No nausea, No vomiting, No insomnia, No muscle spasms, No numbness/tingling in legs/feet, No seizures, No slurred speech, No vision changes, No chest pain, No headache Allergies/Adverse Reactions: telithromycin Allergy (Intermediate, Verified 02/09/20 16:07) Hives Rash tramadol [From Ultram] Allergy (Verified 02/09/20 16:07) Home Medications: Aspirin [[place] Aspirin EC] 162 mg PO DAILY 06/18/17 [History] Fenofibrate 54 mg PO DAILY 06/18/17 [History] Furosemide 40 mg [Lasix 40 MG] 40 mg PO DAILY 06/18/17 [History] Gabapentin [Neurontin] 100 mg PO BID 06/18/17 [History] Metoprolol Tartrate 25 mg [Lopressor 25MG Tab] 25 mg PO BID 06/18/17 [History] Omeprazole 20 MG [Prilosec 20 mg] 20 mg PO DAILY 06/18/17 [History] Potassium Chloride 10 Meq Tab* [Klor Con 10 MEQ] 10 meq PO DAILY 06/18/17 [History] Simvastatin 20Mg [Zocor 20Mg] 20 mg PO DAILY 06/18/17 [History] Carbidopa/Levodopa [Carbidopa-Levo ER 25-100 Tab] 200 mg PO DAILY 05/16/19 [History] Insulin Glargine,Hum.rec.anlog [Basaglar Kwikpen U-100] 100 unit SQ DAILY 05/16/19 [History] Loratadine 10 mg [Claritin 10 mg] 10 mg PO DAILY 05/16/19 [History] Quinapril HCl 10 mg [Accupril 10MG Tablet] 10 mg PO DAILY 05/16/19 [History] Vitamin B Complex [Super B Complex] 1 each PO DAILY 05/16/19 [History] Hx Tetanus, Diphtheria Vaccination/Date Given: No Hx Influenza Vaccination/Date Given: Yes Hx Pneumococcal Vaccination/Date Given: No Immunizations Up to Date: Yes Travel Risk - International Travel Have you traveled outside of the country in past 3 weeks: No - Coronavirus Screening Are you exhibiting any of the following symptoms?: No Close contact with a COVID-19 positive Pt in past 14-21 Days: No - Review of Systems Constitutional: Weakness Eyes: No Symptoms Ears, Nose, & Throat: No Symptoms Respiratory: No Symptoms Cardiac: No Symptoms Abdominal/Gastrointestinal: No Symptoms Genitourinary Symptoms: No Symptoms Musculoskeletal: No Symptoms Skin: No Symptoms Neurological: Lethargy Psychological: No Symptoms Endocrine: No Symptoms - Past Medical History Pertinent Past Medical History: Yes Neurological History: No Pertinent History ENT History: No Pertinent History Cardiac History: Coronary Artery Disease, Hypertension, Myocardial Infarction ([place]) Respiratory History: No Pertinent History Endocrine Medical History: Diabetes Type II Musculoskeletal History: No Pertinent History GI Medical History: Gallbladder Disease History: Renal Disease Psycho-Social History: No Pertinent History Male Reproductive Disorders: No Pertinent History Other Medical History: heart aneurysm, 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 Surgery on Right knee with alee and screws. skin cancer to forehead. and surgery on skin cancer behind left ear. - Social History Smoking Status: Never smoker Exposure to second hand smoke: No Drug Use: none Patient Lives Alone: No - Nursing Vital Signs Nursing Vital Signs: Initial Vital Signs Pulse Rate 115 H 02/09/20 16:04 Respiratory Rate 18 02/09/20 16:04 Blood Pressure 120/73 02/09/20 16:04 O2 Sat by Pulse Oximetry 95 02/09/20 16:04 Pain Scale Pain Intensity 0 - [place] Coma Scale Best Eye Response ([place]): (4) open spontaneously Best Verbal Response ([place]): (4) confused conversation Best Motor Response ([place]): (6) obeys commands [place] Total: 14 - Physical Exam General Appearance: no apparent distress Eye Exam: bilateral eye: normal inspection Ears, Nose, Throat Exam: normal ENT inspection Neck Exam: normal inspection Respiratory: normal breath sounds Cardiovascular: regular rate/rhythm Gastrointestinal: soft Back Exam: normal inspection Extremity Exam: normal inspection Mental Status: alert, disoriented to person, 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 Exam: PERRL Motor/Sensory: no motor deficit, no sensory deficit SpO2: 95 Ordered Tests: Active Orders 24 hr Category Date Time Status ACCUCHECK [Accucheck] STAT Care 02/09/20 16:04 Active [facility] STAT Care 02/09/20 16:04 Active EKG-ER Only STAT Care 02/09/20 16:04 Active EKG-ER Only STAT Care 02/09/20 16:25 Active IV Insertion STAT Care 02/09/20 16:04 Active CHEST 1 VIEW (PORTABLE) Stat Exams 02/09/20 16:24 Taken CBC W DIFF Stat Lab 02/09/20 17:03 Completed CMP Stat Lab 02/09/20 17:03 Completed Lactic Acid Stat Lab 02/09/20 16:23 Completed Lactic Acid Stat Lab 02/09/20 18:36 Received MAGNESIUM Stat Lab 02/09/20 17:03 Completed TROPONIN Stat Lab 02/09/20 17:03 Completed Medication Summary Discontinued Medications Generic Name Dose Route Start Last Admin Trade Name Freq PRN Reason Stop Dose Admin Sodium Chloride 1,000 mls @ 999 mls/hr 02/09/20 16:23 02/09/20 17:29 Sodium Chloride 0.9% 1000 Ml IV 02/09/20 17:23 Infused .Q1H1M STA Infusion Sodium Chloride Confirm 02/09/20 16:26 Sodium Chloride 0.9% 1000 Ml Administered 02/09/20 16:27 Dose 1,000 mls @ ud .ROUTE .[facility] ONE Lab/Rad Data: Laboratory Result Diagrams 02/09/20 17:03 02/09/20 17:03 Laboratory Results 02/09/20 02/09/20 02/09/20 Range/Units 17:03 17:03 16:23 WBC 10.4 (4.0-10.5) K/mm3 RBC 4.21 (4.1-5.6) M/mm3 Hgb 12.7 (12.5-18.0) gm/dl Hct 39.4 L (42-50) % MCV 93.6 (78-100) fl MCH 30.2 (26-32) pg MCHC 32.2 (32-36) g/dl RDW 14.0 (11.5-14.0) % Plt Count 216 (150-450) K/mm3 MPV 11.2 H (7.5-11.0) fl Gran % 67.9 H (36.0-66.0) % Eos # (Auto) 0.17 (0-0.5) Absolute Lymphs (auto) 2.27 (1.0-4.6) Absolute Monos (auto) 0.88 (0.0-1.3) Lymphocytes % 21.8 L (24.0-44.0) % Monocytes % 8.5 (0.0-12.0) % Eosinophils % 1.6 (0.00-5.0) % Basophils % 0.2 (0.0-0.4) % Absolute Granulocytes 7.06 H (1.4-6.9) Basophils # 0.02 (0-0.4) Sodium 134 L (137-145) mmol/L Potassium 4.5 (3.5-5.1) mmol/L Chloride 101 (98-107) mmol/L Carbon Dioxide 26 (22-30) mmol/L Anion Gap 11.6 (5-15) MEQ/L BUN 21 H (9-20) mg/dL Creatinine 1.56 H (0.66-1.25) mg/dL Estimated GFR 46.6 ML/MIN Glucose 125 H (74-106) mg/dL Lactic Acid 2.7 H (0.4-2.0) Calcium 8.5 (8.4-10.2) mg/dL Magnesium 2.0 (1.6-2.3) mg/dL Total Bilirubin 1.30 (0.2-1.3) mg/dL AST 43 (17-59) U/L ALT 19 (0-50) U/L Alkaline Phosphatase 98 (38-126) U/L Troponin I 0.270 H* (0.000-0.034) ng/mL Serum Total Protein 6.2 L (6.3-8.2) g/dL Albumin 3.1 L (3.5-5.0) g/dL - Progress Progress: unchanged Discussed with : Other ([facility] Hospitalist) Will see patient in: other [facility] Counseled pt/family regarding: lab results, diagnosis, need for follow-up, rad results - Departure Departure Disposition: Transfer ([facility]) Clinical Impression: Non-ST elevation CA (NSTEMI) Condition: Fair Critical Care Time: Yes Critical Care Time(excluding separately billable procedures): Critical 75-104 mins Referrals: MATEUSZ GIBSON MD [Primary Care Provider] -
[2020-02-09 16:56] LABS: Absolute Neutrophil Ct (ANC) 7.06 (1.4-6.9); BASOPHIL % 0.2 % (0.0-0.4); Basophil (Absolute #) 0.02 (0-0.4); Eosinophil % 1.6 % (0.00-5.0); Eosinophil (Absolute #) 0.17 (0-0.5); Hematocrit 39.4 % (42-50); Hemoglobin 12.7 gm/dl (12.5-18.0); Lymphocyte (Absolute #) 2.27 (1.0-4.6); Lymphocytes % 21.8 % (24.0-44.0); Mean Cell Volume 93.6 fl (78-100); Mean Corpuscular Hemoglobin 30.2 pg (26-32); Mean Corpuscular Hgb Concent. 32.2 g/dl (32-36); Mean Platelet Volume 11.2 fl (7.5-11.0); Monocyte (Absolute #) 0.88 (0.0-1.3); Monocytes % 8.5 % (0.0-12.0); Neutrophil % 67.9 % (36.0-66.0); Platelet Count 216 K/mm3 (150-450); Red Blood Count 4.21 M/mm3 (4.1-5.6); White Blood Count 10.4 K/mm3 (4.0-10.5)
[2020-02-09 17:34] LABS: ALBUMIN 3.1 g/dL (3.5-5.0); ANION GAP 11.6 MEQ/L (5-15); BILIRUBIN,TOTAL 1.3 mg/dL (0.2-1.3); Calcium 8.5 mg/dL (8.4-10.2); Creatinine 1 1.56 mg/dL (0.66-1.25); Potassium 4.5 mmol/L (3.5-5.1); Total Protein 6.2 g/dL (6.3-8.2)
[2020-02-09 17:55] LABS: TROPONIN 0.27 ng/mL (0.000-0.034)
--- NOTE | 2020-02-09 20:04 | XRAY ---
Indication: Low blood sugar. Confusion. History of squamous cell carcinoma. Comparison: June 23, 2018. Portable chest remains clear. Heart is not enlarged again with CABG surgery and new left Port-A-Cath. Bony thorax intact with mild strandy changes. Impression: Continued nonacute chest with chronic features.
[2020-02-09 20:09] VITALS: BP 99/68; PULSE 107; O2SAT 98
== END 2020-02-09 20:13 | disposition short-term general hospital (02) ==
LOC: ED 15:57
DX: I21.4 Non-ST elevation (NSTEMI) myocardial infarction (principal); R41.0 Disorientation, unspecified; R53.1 Weakness; Z79.899 Other long term (current) drug therapy; I25.10 Atherosclerotic heart disease of native coronary artery without angina pectoris; I10 Essential (primary) hypertension; E11.9 Type 2 diabetes mellitus without complications
CPT/HCPCS: 36000; 36415; 71045; 80053; 82962; 83605; 83735; 84484; 85025; 93005; 93041; 96360; 99285; 99291; 99292